=== PATIENT | female | born 1980 | race Caucasian/White ===

== ENCOUNTER 2017-06-23 11:49 | Day surgery (SDC) | payer OTHER ==
[~2017-06-23] VITALS: Ht 172.7 cm; Wt 62.6 kg
[2017-06-23 11:50] VITALS: BP_SYST 131
--- NOTE | 2017-06-23 11:50 | NUR ---
Patient triaged and placed in waiting room. VSS and patient appears in no acute distress at this time. Accompanied by BOYFRIEND, awaiting available bed, and MD notified of need for MSE.
[2017-06-23 12:17] LABS: BASOPHILS % (AUTO) 0.4 % (0.0-2.0); EOSINOPHILS # (AUTO) 0.1 K/uL (0.0-0.4); EOSINOPHILS % (AUTO) 1.3 % (0.0-4.0); HEMATOCRIT 43.9 % (36-48); HEMOGLOBIN 14.7 g/dL (12.0-16.0); LYMPHOCYTES # (AUTO) 2.3 K/uL (1.0-5.5); LYMPHOCYTES % (AUTO) 28.8 % (20.5-51.5); MEAN CORPUSCULAR HEMOGLOBIN 32 pg (27-31); MEAN CORPUSCULAR HGB CONC 34 % (32-36); MEAN CORPUSCULAR VOLUME 95 fL (79.0-98.0); MONOCYTES # (AUTO) 0.5 K/uL (0.0-1.0); MONOCYTES % (AUTO) 5.8 % (1.7-9.3); NEUTROPHILS # (AUTO) 5.2 K/uL (1.8-7.7); NEUTROPHILS % (AUTO) 63.7 % (40.0-70.0); PLATELET COUNT (AUTO) 173 K/uL (130-430); RED BLOOD CELL COUNT(AUTO) 4.61 MIL/uL (4.2-6.2); RED CELL DISTRIBUTION WIDTH 11.8 % (9.0-15.0); WHITE BLOOD COUNT (AUTO) 8.1 K/uL (4.8-10.8)
[2017-06-23 12:37] LABS: CALCIUM 9.1 mg/dL (8.4-11.0); CREATININE 0.64 mg/dL (0.55-1.30); POTASSIUM 3.9 mmol/L (3.5-5.1)
--- NOTE | 2017-06-23 12:44 | NUR ---
TAKEN TO RADIOLOGY VIA AMBULATORY
[2017-06-23 13:03] LABS: ALBUMIN 4.2 g/dL (3.4-4.8); TOTAL BILIRUBIN 0.6 mg/dL (0.0-1.0); TOTAL PROTEIN, SERUM 7.7 g/dL (6.4-8.3)
--- NOTE | 2017-06-23 13:12 | NUR ---
AFTER ULTRASOUND, PT PLACED IN BED #7 AND REPORT GIVEN TO DONNA
--- NOTE | 2017-06-23 13:12 | NUR ---
Placed in room 7. Placed on network engineer administrator, blood pressure machine and pulse oximeter. To gown for exam. Side rails up. Report given to DONNA.
--- NOTE | 2017-06-23 13:29 | NUR ---
ER at bedside examining patient.
[2017-06-23] MEDS ORDERED: NACL 0.9% 1,000 ML IV ONE (13:30)
--- NOTE | 2017-06-23 13:45 | NUR ---
# 20 gauge angiocath placed to LAC. Use of asceptic technique. Opsite placed over site. Blood return noted. Flushed with 10 cc of normal saline. No evidence of infiltration noted. Patient tolerated well.
--- NOTE | 2017-06-23 13:55 | NUR ---
PT passed a big clot,POC sent to pathology.
--- NOTE | 2017-06-23 14:25 | NUR ---
Dr acosta at bedside explaining pt's procedure,consent of D &C obtained ,pre surgical checklist done.placed in chart
[2017-06-23] MEDS ORDERED: DEXAMETHASONE SOD PHOSPHATE 4 MG/ML VIAL IVP ONE (14:30)
[2017-06-23] MEDS ORDERED: KETOROLAC TROMETHAMINE 30 MG VIAL IVP ONE (14:30)
[2017-06-23] MEDS ORDERED: PROPOFOL 200MG/ 20ML VIAL (DIPRIVAN) IV ONE (14:30)
[2017-06-23] MEDS ORDERED: fentaNYL CITRATE/PF 100 MCG/2 ML AMP IVP ONE (14:30)
[2017-06-23] MEDS ORDERED: SEVOFLURANE 15 MIN GAS INH ONE (14:30)
[2017-06-23] MEDS ORDERED: ONDANSETRON HCL 4 MG/2 ML VIAL IVP ONE (14:30)
[2017-06-23] MEDS ORDERED: OXYTOCIN 10 UNIT/ML VIAL IV ONE (14:30)
[2017-06-23] MEDS ORDERED: ROCURONIUM BROMIDE 10 MG/ML (ZEMURON) IV ONE (14:30)
[2017-06-23] MEDS ORDERED: NS IRRIG SOLN 1000 ML IR ONE (14:30)
--- NOTE | 2017-06-23 14:32 | NUR ---
Patient will be admitted to care of [[facility]]. Admitted to [OUTPT SURGERY ] unit. Will go to room [OR. Belongings list completed. Summary report printed. Report will be given at bedside.
[2017-06-23] MEDS ORDERED: LR 1,000 ML IV SCH (15:14)
[2017-06-23] MEDS ORDERED: MEPERIDINE HCL/PF 25 MG/ML DISP.SYRIN IVP PRN (15:15)
[2017-06-23] MEDS ORDERED: HYDROmorphone 1 MG INJ. 1 MG/ML AMPUL IVP PRN (15:15)
[2017-06-23] MEDS ORDERED: HYDROmorphone 2 MG/ML VIAL IVP PRN ×2 (15:15)
[2017-06-23] MEDS ORDERED: PROMETHAZINE HCL 25 MG/ML AMP IM PRN ×2 (15:30)
[2017-06-23] MEDS ORDERED: ONDANSETRON HCL 4 MG/2 ML VIAL IVP PRN (15:30)
--- NOTE | 2017-06-23 16:20 | NUR ---
Transfer from PACU: Received pt via gurney. awake, alert and oriented. Stable. I.V. access patent. Call light within reach. Report received from PACU.
--- NOTE | 2017-06-23 16:30 | NUR ---
Voided: patient able to void.
--- NOTE | 2017-06-23 16:40 | NUR ---
No bleeding: Pt verbalized no active bleeding.
--- NOTE | 2017-06-23 16:50 | NUR ---
rounds: V/S taken. WNL. Stable.
[2017-06-23 16:55] VITALS: BP_SYST 117
[2017-06-23 17:09] VITALS: BP_SYST 120
--- NOTE | 2017-06-23 17:23 | NUR ---
D/C Patient Patient given medication reconciliation form and D/C instructions. Exit Care provided. Patient verbalized understanding. MD discussed with patient the results and treatment provided. Ambulatory with steady gait for discharge to home. Patient in stable condition, ID band removed. IV catheter removed, intact and dressing applied, no active bleeding. Patient educated on pain management. Patient no belongings.
[2017-06-23 19:03] VITALS: BP_SYST 117
== END 2017-06-23 17:23 | disposition home or self-care (01) ==
LOC: SED 11:49 → SDS 14:34 → SMU 14:36 → UNDOADMOB 14:36 → SMU 16:00 → SDS 17:23
PROVIDERS: ATTEND Obstetrics & Gynecology
DX: O03.4 Incomplete spontaneous abortion without complication (principal)
CPT/HCPCS: 36415; 59812; 76801; 76817; 80053; 84702; 85025; 86886; 86900; 86901; 88305; J1100; J1170; J1885; J2405; J2590; J2704; J3010; J7030; J7120